=== PATIENT | male | born 1970 | race Caucasian/White ===

== ENCOUNTER 2017-01-12 07:56 | Outpatient (CLI) | payer BC ==
[~2017-01-12] VITALS: Ht 172.7 cm; Wt 103.1 kg
--- NOTE | ~2017-01-12 | CATH ---
Cardiac Diagnostic Report Demographics Patient Name URI Suazo Gender Male Date of 1970 Age 46 year(s) Patient Number [id number] Date of Study 01/12/2017 Visit Number [id number] Room Number G63[address] [place] [id number] Ht 172.72 cm Wt 103.1 kg Referring Barrett Mukherjee Primary Physician Physician MD Performing Tiff Portillo MD Secondary Physician Physician Diagnostic Tiff Portillo MD Assisting Physician Physician Interventional Physician Letter Of Credit Document Examiner Physician Findings and Conclusions Diagnostic Findings and Conclusion Non-obstructive CAD normal LV function Diagnostic Recommendations medical therapy Procedure Description The patient was brought to the diagnostic cardiac catheterization-EP laboratory in the fasting, non-sedated state. Informed consent was obtained in the written and verbal form after the risks and benefits were explained. The patient had no further questions and agreed to proceed. The planned puncture-incision site(s) were shaved and prepped with ChloraPrep and draped in the usual sterile manner. Conscious sedation, supplemental oxygen, and pain control medications were delivered by a registered nurse under physician guidance. Surface ECG rhythm, blood pressure measurement, and pulse oximetry were monitored throughout the procedure. Arterial access. The access site was infiltrated with lidocaine. The vessel was entered with the Seldinger technique. A sheath was advanced into the vessel and used for catheter placement. Selective left coronary angiography. A catheter was advanced into the left coronary vessel ostium under Fluoroscopic guidance. Contrast was injected by hand. Images were obtained in multiple projections. Selective right coronary angiography. A catheter was advanced into the right coronary vessel ostium under fluoroscopic guidance. Contrast was injected by hand. Images were obtained in multiple projections. Left heart catheterization with ventriculography. A catheter was advanced across the aortic valve to the left ventricle under fluoroscopic guidance. Resting hemodynamics were obtained. With the catheter at the left ventricular apex, contrast was injected. Images were obtained in ARABIC projections. Post-ventriculography LV pressure was obtained. The catheter was gradually withdrawn into the aorta with continuous pressure recording. Arterial artery hemostasis was achieved. The patient was transferred to a regular nursing floor via cart accompanied by a nurse. The patient left the laboratory in stable condition. Diagnostic Cath Status: Elective Procedure Procedure Type Diagnostic procedure:Ventriculogram:, Left, Angiography:, Coronary Angios w/[facility] Indications: Chest pain and Abnormal Stress Test. The procedure was explained in detail to the patient. Risks, complications and alternative treatments were reviewed. Written consent was obtained. Medications Reviewed with Patient prior to Procedure. Angiographic Findings Dominance: Right Cardiac Arteries and Lesion Findings LMCA: Normal (0% Stenosis).large wnl LAD: Normal (0% Stenosis).medium wnl Diag 1 small, D2 medium wnl LCx: Normal (0% Stenosis).ND medium wnl OM1 medium wnl RCA: Normal (0% Stenosis).Large wnl PL medium wnl PDA small wnl Procedure Data Procedure Date Date: 01/12/2017Start: 10:32 AMEnd: 11:00 AM Entry Locations - Antegrade Percutaneous access was performed through the Right Femoral artery (Primary location). A 6 Fr sheath was inserted. Hemostasis was successfully obtained using Perclose ProGlide (Duncan). Closure Comments: deployed by fred. Procedure Medications Order and Administration + + + +-------+ !Time !Medication !Dosage !Route ! + + + +-------+ !01/12/2017 10:32 AM !Versed !0.5 mg !I.V. ! + + + +-------+ !01/12/2017 10:33 AM !Fentanyl !25 mcg !I.V. ! + + + +-------+ !01/12/2017 10:35 AM !Versed !0.5 mg !I.V. ! + + + +-------+ !01/12/2017 10:40 AM !Oxygen !2 l/min ! ! + + + +-------+ !01/12/2017 10:41 AM !Oxygen !4 l/min ! ! + + + +-------+ !01/12/2017 10:50 AM !Fentanyl !25 mcg !I.V. ! + + + +-------+ !01/12/2017 10:55 AM !Oxygen ! !NC ! + + + +-------+ Devices Used - A6 Fr. BS JL 4 Diag. Catheterwas used for:Left coronary angiography. - A6 Fr. BS JR 4 Diag. Catheterwas used for:Right coronary angiography. - A6 Fr. BS Angled Pigtail Diag. Catheterwas used for:Left ventriculography. Contrast Material - Isovue 89896 ml Fluoroscopy Time: Diagnostic: 2:18 minutes. Total: 2:18 minutes. Fluoroscopy Dose: Diagnostic: 769 mGy. Total: 769 mGy. Estimated Blood Loss: 4 ml. Medical History Allergies - No known allergies. Risk Factors The patient risk factors include:obesity, physical activity, hypercholesterolemia, treated hypertension, family history of premature CAD, last creatinine: 0.8 mg/dl, creatinine clearance: 166.46 ml/min and dyslipidemia. Admission Data Admission Date: 01/12/2017 Admission Time: 07:56 AM Admit Source: Other Insurance Payors: Private health insurance. Admission Medications + +------+------+ + + + + !Medication !Dosage!Times !Last !Last !Administered !Comments ! ! ! !Per !Delivery !Delivery ! ! ! ! ! !Day !Date !Time ! ! ! + +------+------+ + + + + !Aspirin ! ! ! ! ! ! ! !(any) ! ! ! ! ! ! ! + +------+------+ + + + + !Beta ! ! ! ! ! ! ! !Berry ! ! ! ! ! ! ! !(any) ! ! ! ! ! ! ! + +------+------+ + + + + Clinical Evaluation Leading to Procedure - The patient's CAD presentation was assessed as: Unstable angina. - The patient's anginal syndrome during the past two weeks was assessed as: Class IV according to the [place] [employer] Classification System (CCS). Anti-anginal medications were prescribed during the past two weeks. The medication is: Beta Blockers. VA LV function assessed as:Normal. Ejection Fraction - 01/12/2017 - Method: LV gram. EF%: 65. LVA Segment Contractility 1 - Normal 3 - Mild 5 - Severe 7 - Dyskinesis hypokinesis hypokinesis 2 - 4 - Moderate 6 - Akinesis 8 - Aneurysm Hypokinesis hypokinesis Hemodynamics Condition: Rest O2 Consumption: Estimated: 258.63Heart Rate: 68 bpm Pressures (mmHg) +-----+ + !Site !Pressure ! +-----+ + !AO !99/67 (83) ! +-----+ + !AO !104/64 (82) ! +-----+ + !AO !101/64 (81) ! +-----+ + !LV !99/-1 ,21 ! +-----+ + !LV !109/-39 ,16 ! +-----+ + !LV !102/0 ,25 ! +-----+ + !LV !102/0 ,24 ! +-----+ + !AO !106/63 (82) ! +-----+ + !LV !101/-22 ! +-----+ + Valve Gradients and Areas + +---------+---------+---------+ +---------+ + !Valve !Peak !Mean !Area !Index !Flow !Source ! + +---------+---------+---------+ +---------+ + !Aortic !0 !0 ! ! ! ! ! + +---------+---------+---------+ +---------+ + !Aortic !0 !0 ! ! ! ! ! + +---------+---------+---------+ +---------+ + Shunts Oxygen Values O2 Capacity 184.96 O2 Consumption 258.63 Discharge Data Discharge Date: 01/12/2017 Hospital Status: Outpatient Signatures dtt: Bandar Matthew (cardio) dtd: 01/12/17 1032 Physician Self Edit
[~2017-01-12 07:56] MED LIST: ASPIRIN EC81 MG PO; LOPRESSOR25 MG PO; PRILOSEC20 MG PO
== END 2017-01-12 14:40 | disposition disaster alternative care site (69) ==
LOC: GCAT 07:56 → GPCU 07:56 → GCAT 14:40
PROC: B2111ZZ Fluoroscopy of Multiple Coronary Arteries using Low Osmolar Contrast (ICD-10-PCS; principal; 2017-01-12)
PROC: B2151ZZ Fluoroscopy of Left Heart using Low Osmolar Contrast (ICD-10-PCS; principal; 2017-01-12)
PROC: 4A023N7 Measurement of Cardiac Sampling and Pressure, Left Heart, Percutaneous Approach (ICD-10-PCS; principal; 2017-01-12)
DX: R07.9 Chest pain, unspecified (principal); R94.39 Abnormal result of other cardiovascular function study; I10 Essential (primary) hypertension; K21.9 Gastro-esophageal reflux disease without esophagitis; E66.9 Obesity, unspecified; E78.00 Pure hypercholesterolemia, unspecified; Z79.82 Long term (current) use of aspirin; Z79.899 Other long term (current) drug therapy; Z82.49 Family history of ischemic heart disease and other diseases of the circulatory system; Z87.891 Personal history of nicotine dependence; Z87.11 Personal history of peptic ulcer disease
CPT/HCPCS: C1760; J0583; J1644; J2001; J2250; J3010; J7030; J7060